=== PATIENT | male | born 1980 | race African-American/Black ===

== ENCOUNTER 2017-10-29 19:02 | Emergency (ER) | payer OTHER ==
[~2017-10-29] VITALS: Ht 165.1 cm; Wt 59.0 kg
[2017-10-29] MEDS ORDERED: METRONIDAZOLE500 MG PO (19:23)
[2017-10-29] MEDS ORDERED: PROM25TA52 PO (19:27)
[2017-10-29 19:56] LABS: PLATELET COUNT 206 K/uL (142-355)
[2017-10-29 20:07] LABS: POTASSIUM 3.7 mmol/L (3.6-5.2)
[2017-10-29 21:30] VITALS: BP 126/74; TEMP 98.2
== END 2017-10-29 21:30 | disposition home or self-care (01) ==
LOC: ED 19:02
DX: R10.9 Unspecified abdominal pain (principal); K76.89 Other specified diseases of liver
CPT/HCPCS: 80053; 81000; 85027; 96374; 96375; 99284; J1885; J2405